=== PATIENT | female | born 1975 | race Two or more races ===

== ENCOUNTER 2024-01-30 15:04 | Emergency (ER) | payer BC, SELFPAY ==
[2024-01-30 15:05] VITALS: BMI 29.2
[2024-01-30 15:40] VITALS: BP 127/84; PULSE 107; RESP 17; TEMP 36.9; O2SAT 100
--- NOTE | 2024-01-30 15:48 | PD.EDFMALE ---
ED Female Urogenital RME/HPI General Chief complaint: Urogenital-Female Stated complaint: CHILLS/ BLOOD IN URINE TODAY Time Seen by Provider: 01/30/24 15:22 Source: patient, RN notes reviewed and old records reviewed Arrival date/time: 01/30/24 15:04 Mode of arrival: ambulatory Limitations: no limitations RME / HPI RME / HPI Narrative: 48yof presents to ED for dysuria, hematuria that started today. Patient c/o chills. No fever, nausea/vomiting, abdominal pain or flank pain reported. Ibuprofen taken this afternoon with mild relief. Related Data Home Medications ?Medication ?Instructions ?Recorded ?Confirmed vitamin 1 tab PO QDAY 05/17/17 05/17/17 no.76-iron,carbonyl 29 mg iron-folic acid 1 mg tablet (Prenatabs Rx) Previous Rx's ?Medication ?Instructions ?Recorded ibuprofen 800 mg tablet 800 mg PO TID PRN pain #30 tabs 02/11/20 nitrofurantoin 100 mg PO Q12H 7 days #14 caps 01/30/24 monohydrate/macrocrystals 100 mg capsule (Macrobid) Allergies Allergy/AdvReac Type Severity Reaction Status Date / Time No Known Allergies Allergy Verified 01/30/24 15:06 Review of Systems Review of Systems Systems Reviewed: All systems reviewed, normal except as documented Constitutional Constitutional: Reports chills and Denies fever(s) Gastrointestinal Gastrointestinal: Denies abdominal pain, Denies nausea and Denies vomiting Genitourinary Genitourinary: Reports dysuria, Denies flank pain and Reports hematuria Past Medical History Social History SMOKING STATUS: Never smoker SUBSTANCE USE: does not use ALCOHOL: Never Past Medical History Comments PMH COMMENT: Denies past medical history ED Exam General Limitations: Present no limitations General appearance: Present alert and in no apparent distress Head Head exam: Present atraumatic and normocephalic Eye Eye exam: Present normal appearance, PERRL and EOMI ENT ENT exam: Present normal exam and mucous membranes moist Neck Neck exam: Present normal inspection and full ROM Chest Chest inspection: Present normal inspection and symmetric chest wall rise Respiratory Respiratory exam: Present normal lung sounds bilaterally; Absent respiratory distress Cardiovascular Cardiovascular exam: Present normal rhythm and tachycardia (mild, 107) Abdominal Exam Abdominal exam: Present soft; Absent distention, tenderness, guarding or rebound Extremities Exam Extremities exam: Present normal inspection and full ROM Back Exam Back exam: Absent CVA tenderness (R) or CVA tenderness (L) Neurological Exam Neurological exam: Present alert and oriented X3 Psychiatric Psychiatric exam: Present normal affect and normal mood Skin Skin exam: Present warm, dry, intact and normal color Course Quality Measures none Orders Category Date Time Status UA [Urinalysis] Stat Lab 01/30/24 15:49 Completed Acetaminophen Tab [Tylenol ES Tab] Med 01/30/24 15:48 Discontinued 1,000 mg PO X1 ONE Vital Signs Vital signs: Vital Signs Temperature 98.5 F 01/30/24 15:40 Pulse Rate 107 H 01/30/24 15:40 Respiratory Rate 17 01/30/24 15:40 Blood Pressure 127/84 01/30/24 15:40 Pulse Oximetry (%) 100 01/30/24 15:40 Oxygen Delivery Method Room Air 01/30/24 15:40 Urogenital - Female MDM Narrative MDM Narrative:: 48yof presents to ED for dysuria, hematuria that started today. Patient c/o chills. No fever, nausea/vomiting, abdominal pain or flank pain reported. Ibuprofen taken this afternoon with mild relief. Will treat for cystitis. Patient is well-appearing, afebrile, vitals are stable. Good patient for outpatient mgmt. Encouraged adequate fluids, symptomatic treatment prn. Stable for dc, RTED precautions given. Patient data External records reviewed:: [facility] previous records (07/23/23 ED visit for lumbar strain) Clinical information provided by:: patient Social determinants that could affect healthcare access:: other (specify) (poor access to healthcare, acculturation difficulty) Patient has the following chronic illnesses:: none How is presenting disease/condition affected by chronic disease/condition?: no chronic disease Evaluation data The following diagnostics were reviewed and interpreted by me:: lab results Lab and/or radiology exams considered but not ordered:: CT abd/pelvis: do not suspect pyelo or kidney stone Interpretation Summary: UA +blood, +leuks Medications / Prescriptions Medications or Prescriptions considered but not ordered:: none Medication administrations:: Medication Administration History Discontinued Medications Acetaminophen (Acetaminophen 500 Mg Tablet) 1,000 mg PO X1 ONE Stop: 01/30/24 15:49 Last Admin: 01/30/24 16:01 Dose: 1,000 mg Documented By: above medication administered in ED Consultations Consultation(s) initiated? (list below): No Diagnosis Urogenital Female Differential Diagnosis: urinary tract infection, cystitis and other (pyelo, ovarian cyst, ) Most likely diagnosis given after review of the tests above:: cystitis Admission Indicated Admission indicated?: not indicated Admission Request Was there a request for admission?: No Disposition Plan Disposition Plan: Discharge Discharge Attestation Discharge Attestation: The patient and all family members were given an opportunity to ask questions and understood the discharge instructions. Discharge instructions specifically effects, indications for sooner follow up or return to the emergency department, and the expected course of current diagnosis. Patient condition: Stable Discharge Plan Plan Patient Disposition: HOME (Self Care) Patient condition on transfer: Stable Prescriptions/Referrals Prescriptions/Med Rec: New nitrofurantoin monohyd/m-cryst [Macrobid] 100 mg capsule 100 mg PO Q12H 7 Days Qty: 14 0RF Rx Instructions: must administer with a meal/food No Action ibuprofen 800 mg tablet 800 mg PO TID PRN (Reason: pain) Qty: 30 0RF [id number] [Prenatabs Rx] 29 mg iron- 1 mg Tablet 1 tab PO QDAY Referrals: No Primary/Family,Physician [Primary Care Provider] - In 1 week Problem List Clinical Impression: UTI (urinary tract infection) Patient/Caregiver Discharge Instructions Education Materials: ED CYSTITIS Female Adult Print Language: [place] Stand Alone Forms: [employer] Award Info., Work/School Release, Patient Portal Info Letter PA/DEV Supervising Physician PA/DEV Supervising Physician: Silvana
[2024-01-30 15:55] LABS: Collection Type, Urine Clean Catch
[2024-01-30] MEDS: ACETAMINOPHEN 500 MG TABLET 1000 MG PO (16:01)
[2024-01-30 16:11] LABS: Bacteria,Urine Rare; Bilirubin,Urine Negative (Negative); Blood,Urine 3+ (Negative); Clarity,Urine Turbid (Clear/Hazy); Color,Urine Brown (Lt Yel-Yel); Glucose, Urine Negative (Negative); Ketones,Urine 1+ (Negative); Leukocyte Esterase,Urine Positive (Negative); Nitrite,Urine Negative (Negative); Protein,Urine 2+ (Neg - Trace); RBC,Urine 331 /hpf (0-3); Specific Gravity,Urine 1.007 (1.001-1.035); Squamous Epithelial Cell,Urine < 1 /hpf (0-5); Urobilinogen,Urine Negative mg/dL (0.0-1.0); WBC,Urine 423 /hpf (0-5)
== END 2024-01-30 16:35 | disposition home or self-care (01) ==
PROVIDERS: Physician Assistant; Emergency Provider Emergency Medicine
DX: N39.0 Urinary tract infection, site not specified (principal)
CPT/HCPCS: 81001; 99283; A9270